=== PATIENT | female | born 1940 | race Two or more races ===

== ENCOUNTER 2024-08-19 07:13 | Day surgery (SDC) | payer OTHER ==
[2024-08-19] MEDS ORDERED: fentaNYL CITRATE 100 MCG/2 ML VL ONE (08:39)
[2024-08-19] MEDS ORDERED: PHENYLEPHRINE HCL 10 MG/ML VL ONE (08:47)
[2024-08-19] MEDS ORDERED: PROPOFOL 10 MG/ML 20 ML IV ONE (08:47)
--- NOTE | 2024-08-19 08:52 | DVHHP2 ---
GI H&P Pre-Op Assessment Date: 08/19/24 Chief complaint: epigastric pain HPI: per clinic note Past medical history: per clinic note Past surgical history: per clinic note Family history: per clinic note Physical exam: General: NAD, AAOX3 HEENT: PERRL, no scleral icterus, normal hearing, gums without lesions or bl eeding, oropharynx clear without erythema or exudate. Neck: Supple without enlargement of the thyroid, or lymphadenopathy. Chest: Normal size and shape, no tenderness, lung marquez clear to auscultation and percussion, nonlabored breathing. Heart: RRR, no murmur Abdomen: non-distended, no tenderness to palpation, +BS, no hepatosplenomegaly Extremities: no edema Neurological: CN II-XII intact, sensation intact in all extremities, 5+ strength in all extremities Skin: No rashes, No jaundice Assessment: - epigastric pain Plan: - EGD - Risks (bleeding, infection, perforation, reaction to sedation medications and cardiopulmonary arrest) and benefit of the procedure were explained to patient. Patient agrees to undergo the procedure. REINA MCKEON MD Aug 19, 2024 08:52
--- NOTE | 2024-08-19 08:54 | DVHOP2 ---
Operative Report DATE OF OPERATION: 08/19/24 PROCEDURE: Upper Endoscopy. PREOPERATIVE INDICATION: The patient is a 83 -year-old female undergoing endoscopy for epigastric pain. POSTOPERATIVE DIAGNOSES: 1. Slight gastritis. PROCEDURE PERFORMED BY: Alfredito Limon SCOPE: Olympus videoendoscope. ASA CLASS: 3 PREOPERATIVE MEDICATIONS: MAC with Dr Sandoval PROCEDURE IN DETAIL: After obtaining an informed consent, the patient was placed on left lateral decubitus position. The patient was then sedated with the above medications. A bite block was placed between her teeth. The endoscope was then passed through the oropharynx, into the esophagus, and through the stomach and pylorus up to the second and third part of the duodenum. The duodenum was normal in appearance. There was slight gastritis. Gastric biopsies were obtained. The GEJ was normal in appearance at 32 cm. The esophagus was normal in appearance. The endoscope was then withdrawn. The patient tolerated the procedure well without difficulty. COMPLICATIONS : None SPECIMENS: Gastric biopsies DISPOSITION: D/C to home PLAN: 1. Await for biopsy result 2. Continue with Protonix. ALFREDITO LIMON MD Aug 19, 2024 08:54
[2024-08-19 08:55] VITALS: PULSE 81; RESP 14; TEMP 97.6; O2SAT 100
--- NOTE | 2024-08-19 08:55 | DVHDS2 ---
Physician Discharge Progress N Final Diagnosis: gastritis Operations or Procedures: Operations or Procedures EGD with biopsy Condition on Discharge: Good Disposition: Home Discharge Instructions: Diet: Regular Activity: No Restrictions, As Tolerated Medications: resume previous home medications Follow Up Care: Discharge Statement: "Patient was advised to return to the ER or call 911 if any headaches, dizziness, shortness of breath, chest pain, abdominal pain, bleeding, fevers, or worsening of medical condition. Patient was counseled about treatment plan, medications, possible side effects, patientverbalized understanding. All questions were answered to the best of my ability. This discharge took greater then 30 minutes in planning, reviewing documentation, counseling the patient, and discussing with other team members." REINA MCKEON MD Aug 19, 2024 08:55
[2024-08-19 09:20] VITALS: BP 19/51; PULSE 70; RESP 16; O2SAT 95
--- NOTE | 2024-08-23 13:51 | ECG ---
[facility] Test Date: 2024-08-19 Test Time: 07:45:59 Pat Name: LAMAR ANDREA Department: Room: Gender: F Chief Crna: SPENCER : 1940 Requested By: REINA MCKEON Order Number: [id number] Reading MD: Earl Otto Measurements Intervals [place] Rate: 82 P: 61 MS: 158 QRS: 28 QRSD: 80 T: 56 QT: 366 QTc: 427 Interpretive Statements Normal sinus rhythm Nonspecific T wave abnormality Electronically Signed On 08-23-2024 21:05:18 PST by Earl Otto Please click the below link to view image of tracing.
== END 2024-08-19 09:35 | disposition home or self-care (01) ==
LOC: GI 07:13
PROVIDERS: ATTEND Internal Medicine Gastroenterology
DX: K29.50 Unspecified chronic gastritis without bleeding (principal); R10.13 Epigastric pain; E11.9 Type 2 diabetes mellitus without complications; I10 Essential (primary) hypertension; E78.5 Hyperlipidemia, unspecified; Z90.49 Acquired absence of other specified parts of digestive tract; Z90.710 Acquired absence of both cervix and uterus; Z79.899 Other long term (current) drug therapy; Z79.84 Long term (current) use of oral hypoglycemic drugs; Z98.890 Other specified postprocedural states
CPT/HCPCS: 43239; 82962; 88305; 88312; 88342; J2371; J2704; J3010; J7030